=== PATIENT | female | born 1945 | race Caucasian/White ===

== ENCOUNTER 2017-04-05 12:27 | Day surgery (SDC) | payer BC ==
--- NOTE | 2017-04-05 07:26 | History and Physical - [facility] ---
CHIEF COMPLAINT/HISTORY OF CHIEF COMPLAINT: This patient presents with a history of an intractable lumbar radiculitis. Due to the failure of all therapy a spinal cord stimulator trial was conducted on 02/27/17 with 75-90% pain control. Due to the failure of all therapies and the success of the stimulator trial, the patient presents today for implantation of a permanent system. PAST MEDICAL HISTORY: Hypertension. PAST SURGICAL HISTORY: MEDICATIONS ON ADMISSION: List to be provided. ALLERGIES: None identified. FAMILY/PSYCHOSOCIAL HISTORY: Social history - Noncontributory. Family history - Diabetes, thyroid disease, hypertension, and cerebrovascular disease. SYSTEMS REVIEW: The patient seems appropriate in no acute distress. The remainder of the systems review is positive for glasses, headaches, blood pressure problems, and degenerative arthritis. PHYSICAL EXAMINATION: Height is 5'8", weight is 200 pounds. Vital signs - Not available. HEENT: Within normal limits. LUNGS: Clear. HEART: Regular rate and rhythm. ABDOMEN: Nontender. MUSCULOSKELETAL: Examination of the musculoskeletal system shows diffuse tenderness throughout the lumbar spine. Range of motion does cause pain throughout the low back and hip with both flexion and extension and a lower extremity component moving into both legs. Ambulation - No assistive device utilized. NEUROLOGIC: Cranial nerves are intact. IMPRESSION: LUMBAR RADICULITIS, ICD10 CODE M54.16 AND M54.17. PLAN: The patient is here for implantation of a permanent system spinal cord stimulator and internal generator based upon the successful trial and the failure of all other therapies. The potential risks, side effects, and complications have all been carefully reviewed including dural puncture, nerve root injury, and spinal cord injury. The patient understands and has consented. We will consider this outpatient although an overnight stay will be evaluated. RUCHI WHITMAN D.O. Date & Time JOB NUMBER: [id number] MTDD
[~2017-04-05 12:27] MED LIST: ACETAMINOPHEN 1,000 MG/100 ML BTL IV ONE; CEFAZOLIN 2 Gram 2 GM/50 ML BAG IVPB ONE; FAMOTIDINE 20MG TABLET PO ONE; MECLIZINE 25 MG TABLET PO ONE; METOCLOPRAMIDE 10 MG TABLET PO ONE
[2017-04-05] MEDS ORDERED: BUPIVACAINE 0.5% W/EPI MPF 30 ML VIAL IVP ONE (14:00)
[2017-04-05] MEDS ORDERED: CEFAZOLIN 1G VIAL IM ONE (14:00)
[2017-04-05] MEDS ORDERED: DEXAMETHASONE 4 MG/ML 1ML VIAL IVP ONE (14:00)
[2017-04-05] MEDS ORDERED: LIDOCAINE 1% W/EPI 1:200,000 MPF 30ML SQ ONE (14:00)
[2017-04-05] MEDS ORDERED: HYDROMORPHONE HCL 2 MG/ML VIAL IV ONE (14:00)
[2017-04-05] MEDS ORDERED: LIDOCAINE 2% MDV (20MG/ML) 20ML VIAL IV ONE (16:06)
[2017-04-05] MEDS ORDERED: MIDAZOLAM HCL 2MG/2ML VIAL IV ONE (16:06)
[2017-04-05] MEDS ORDERED: PROPOFOL 10 MG/ML VIAL IV ONE (16:06)
[2017-04-05] MEDS ORDERED: FLUMAZENIL 1MG/10ML VIAL IV ONE (16:06)
[2017-04-05] MEDS ORDERED: FENTANYL PF 100MCG/2ML VIAL IV ONE (16:06)
[2017-04-05] MEDS ORDERED: MORPHINE SULFATE 5 MG/ML PFS IVP ONE (16:06)
--- NOTE | 2017-04-11 12:06 | RADIOLOGY REPORT ---
EXAM: AP THORACIC SPINE HISTORY: STIMULATOR PLACEMENT. TECHNIQUE: AP view of the thoracic spine was obtained. Comparison: None. FINDINGS: Two leads overlie the thoracic spine extending cephalad with the tips at the upper T6 level. Mild to moderate dextroconvex scoliosis of the thoracic spine with at least mild degenerative disk disease. IMPRESSION: STIMULATOR LEADS OVERLIE THE THORACIC SPINE EXTENDING CEPHALAD TO THE UPPER T6 LEVEL. JOB NUMBER: [id number] MTDD
--- NOTE | 2017-04-11 15:49 | Operative Note ---
DATE OF SURGERY: 04/05/2017 PREOPERATIVE DIAGNOSIS: Intractable lumbar radiculitis, ICD10 code M54.16, M54.17. OPERATION: 1. Fluoroscopic-guided right translaminar epidural access T11-12, placement of spinal cord stimulator lead 1, a [employer] 16, 6 electrodes positioned left T6. 2. Complex programming of lead 1 for 20 minutes. 3. Fluoroscopic-guided epidural access right T12-L1 using a translaminar approach, placement of spinal cord stimulator lead 2, a [employer] 16, 6 electrodes positioned right T6. 4. Complex programming of lead 2 for 20 minutes. 5. Incision, subdissection, and anchoring leads 1 and 2 to supraspinous fascia using a [employer] locking anchor. 6. Incision, subdissection, and creation of subcutaneous pouch at right posterior gluteal margin for placement of generator identified as a [employer] programmable rechargeable. 7 .Tunneling between pouches, placement of external portion of lead 1 and lead 2 into generator pouch, each lead interfaced with bifurcate extension, each bifurcate extension interfaced to generator. 8. Placement of generator into pouch, secured to posterior fascia using nonabsorbable suture, placement of leads in the pouch, closure of both incisions with Vicryl for fascia, running subcuticular Vicryl for skin, Dermabond closure. 9. Complex recovery room programming internal generator home use 2 stimulators for 20 minutes. Surgeon: Ciro Rodriguez DO Anesthesia: Local with sedation. Anesthesia Provider: Vern Wu Indication: This patient presents with a history of intractable lumbar radiculitis. Due to the failure of all therapies, a spinal cord stimulator trial was conducted in the office with 75% to 90% pain control. Due to the failure of all therapies and success of the trial, she opted to have a permanent implant. PROCEDURE: Intravenous line, vital sign monitoring, IV sedation by Anesthesia. Patient positioned prone. Sterile prep, sterile technique. The epidural interface right of the midline at T11-12 and 12-1 infiltrated with local and then 2 separate curved access needles with loss of resistance. At 11-12, spinal cord stimulator lead 1, a [employer] 16, 6 electrodes positioned left T6. With the epidural access right of the midline at 12-1, spinal cord stimulator lead 2, a [employer] 16, 6 electrodes positioned right of the midline at T6. Complex programming of lead 1 over 20 minutes followed by complex programming of lead 2 over 20 minutes resulting in pattern of stimulation across the back into the legs. Patient indicating we were in all the appropriate areas. She was given the option to implant the system, continue to program, or remove the system. She opted to implant. The question was repeated with the same response. At that point, the skin above and below both needles was infiltrated. An incision made and subcutaneous dissection was conducted at supraspinous fascia. Each lead was then anchored to the supraspinous fascia using a [employer] locking anchor. Right of the midline and below the belt line at the right posterior superior gluteal margin, a site picked by the patient for the generator. Skin infiltrated, incision made, and subcutaneous dissection was used to form a pouch of suitable size and depth. A tunneling tool was then used to carry both leads into the posterior gluteal pouch and then each lead was interfaced with bifurcate extension. Each bifurcate extension interfaced with the generator. Antibiotic irrigation and Bovie for hemostasis. The generator was then secured to the posterior fascia of the pouch using a nonabsorbable suture. The leads were placed in their own pouch, and then both incisions were closed with Vicryl for fascia and running subcuticular Vicryl for skin. A Dermabond closure was then used to approximate the edges of both wounds. She was transferred to the recovery room stable showing no side effects of the procedure or the sedation. When fully awake and alert, she was transported to the floor for observation. If she is fully awake and meets the criteria on the nursing floor, she can be discharged to home. DISCHARGE INSTRUCTIONS: 1. Sites to remain clean and dry although the Dermabond will allow showering. She should not shower until tomorrow or the next 24 hours. 2. Standard medications resumed including Levaquin the antibiotic 500 mg once a day for 14 days. 3. The office will contact the patient at home to evaluate and set up an evaluation for the incisional sites in 5-7 days. Until then, her activity should remain low. Limit bend, lift, push, pull. All other instructions provided, numbers to contact if problems given. At that point she was discharged. CC: Dr. Sarthak SALOMON
== END 2017-04-05 18:30 | disposition home or self-care (01) ==
LOC: SUR 12:27 → MEDSURG 16:38 → SUR 18:30
PROVIDERS: ATTEND Pain Medicine Interventional Pain Medicine
DX: M54.16 Radiculopathy, lumbar region (principal); M54.17 Radiculopathy, lumbosacral region
CPT/HCPCS: 63685; 63650 ×2; 00300; 95972; 85002; 72020; J3010; J1170; J0690; J2270

== ENCOUNTER 2018-07-04 11:55 | Day surgery (SDC) | payer BC ==
--- NOTE | 2018-07-04 06:39 | History and Physical Report ---
DATE: 07/04/2018. CHIEF COMPLAINT AND HISTORY OF CHIEF COMPLAINT: This patient presents with a history of an intractable lumbar radiculopathy. She had a spinal cord stimulator implant placed on 04/05/2017. Although the system has been working well for her, there have been certain areas of her pain which we have been unable to capture through the current system. A new generator has just been released within the last few months from [employer] which greatly enhances the functionality of the system providing more settings and greater control. She is here for a battery change to improve the functionality of the system. PAST MEDICAL HISTORY: Hypertension. PAST SURGICAL HISTORY: Stimulator implant. MEDICATIONS ON ADMISSION: To be provided. ALLERGIES: None. SOCIAL HISTORY: Noncontributory. FAMILY HISTORY: Diabetes, thyroid disease, hypertension, cerebrovascular disease. REVIEW OF SYSTEMS: The patient is appropriate and in no acute distress. The remainder of the systems review shows glasses, headaches, blood pressure problems, degenerative arthritis. PHYSICAL EXAMINATION: General: Height and weight unavailable. Vital Signs: Not available. HEENT: Within normal limits. Lungs: Clear. Heart: Regular rate and rhythm. Abdomen: Nontender. Musculoskeletal: Examination of the musculoskeletal system shows the generator pouch at the right posterior gluteal margin. The incision is intact. the primary underlying pain pattern is low back with a bilateral lower extremity extension. Neurologic: Cranial nerves are intact. IMPRESSION: 1. LUMBAR RADICULOPATHY, ICD-10 CODE M54.16 AND M54.17. 2. SPINAL CORD STIMULATOR INTERNAL GENERATOR NONFUNCTIONAL. PLAN: The patient is here on an outpatient basis for replacement of the generator. The potential risks, side effects, and complications have all been carefully reviewed and discussed. JOB NUMBER: [id number] cc: Augustus Broderick
[2018-07-04] MEDS ORDERED: PROPOFOL 10 MG/ML VIAL IV ONE (11:56)
[2018-07-04] MEDS ORDERED: *PACU ONLY* KETAMINE HCL 10 MG/ML (20ML) VIAL IV ONE (11:56)
[2018-07-04] MEDS ORDERED: LIDOCAINE 1% W/EPI 1:200,000 MPF 30ML SQ ONE (11:56)
[2018-07-04] MEDS ORDERED: CEFAZOLIN 1G VIAL IM ONE (11:56)
[2018-07-04] MEDS ORDERED: BUPIVACAINE 0.5% W/EPI MPF 30 ML VIAL IVP ONE (11:56)
[2018-07-04] MEDS ORDERED: FENTANYL PF 100MCG/2ML VIAL IV ONE (11:56)
[2018-07-04] MEDS ORDERED: MIDAZOLAM HCL 2MG/2ML VIAL IV ONE (11:56)
--- NOTE | 2018-07-05 21:50 | Operative Note - [facility] ---
DATE OF SURGERY: 07/04/18. PREOPERATIVE DIAGNOSES: 1. INTRACTABLE LUMBAR RADICULOPATHY, ICD-10 CODE = M54.16 AND M54.17. 2. SPINAL CORD STIMULATOR INTERNAL GENERATOR. SURGERY: FLUOROSCOPIC-GUIDED REMOVAL AND REPLACEMENT OF INTERNAL PULSE GENERATOR WITH A [employer] WAVEWRITER. SURGEON: RUCHI WHITMAN D.O. ANESTHESIA: LOCAL SEDATION. ANESTHESIA PROVIDER: MILLICENT GARVEY CRNA. INDICATIONS: This patient presents with a history of intractable lumbar radiculopathy managed by spinal cord stimulation. She recently has had a certain amount of breakthrough pain, which has not been adequately covered by her stimulator. Multiple attempts at reprogramming failed to appreciably control these regions, which were upper back. She was given the option to change her generator to the new WaveWriter technology, which provides greater functionality, improved waveform generation, and more greater areas of coverage including moving higher into the lumbar and thoracic spine. She opted for a generator removal and replacement. SURGERY: Intravenous line, vital sign monitoring, IV sedation, prepped and draped sterile technique. Patient position prone. Sterile prep, sterile technique at the right posterior superior gluteal margin. Generator pouch identified, marked and infiltrated with local, incision made, and subcutaneous dissection was conducted to the pouch. The pouch was opened and generator exteriorized and from the internal leads. The new WaveWriter generator placed onto the field, interfaced with the indwelling leads. Antibiotic irrigation and Bovie for hemostasis. Nonabsorbable suture was placed to secure the generator into the pouch and then the generator pouch was closed using STRATAFIX suture, 2-0 for fascia and 3-0 running subcuticular for skin. Dermabond closure. She was transported to the Recovery Room stable, no side effects from the procedure or the sedation. When fully awake and alert, she was prepared for discharge. DISCHARGE INSTRUCTIONS: 1. The site is to remain clean and dry. No sitting in water but she may shower. 2. Standard medications resumed including the antibiotic, Levaquin 500 mg once a day for 14 days. 3. She will be seen in the office in 7 to 10 days. Until then, she is to keep her activity levels low. All other instructions provided, numbers to contact if problems given. She will be discharged. cc: Dr. Anushka Archibald JOB NUMBER: [id number] [facility]
== END 2018-07-04 14:50 | disposition home or self-care (01) ==
LOC: SUR 11:55
PROVIDERS: ATTEND Pain Medicine Interventional Pain Medicine
DX: M54.16 Radiculopathy, lumbar region (principal); M54.17 Radiculopathy, lumbosacral region; R60.9 Edema, unspecified; I10 Essential (primary) hypertension; E78.00 Pure hypercholesterolemia, unspecified; G25.81 Restless legs syndrome; Z79.01 Long term (current) use of anticoagulants; J44.9 Chronic obstructive pulmonary disease, unspecified; I71.4 Abdominal aortic aneurysm, without rupture; K44.9 Diaphragmatic hernia without obstruction or gangrene; Z95.5 Presence of coronary angioplasty implant and graft
CPT/HCPCS: 63685; 00300; 95972; J3010; J0690; C1820

== ENCOUNTER 2019-12-11 12:01 | Day surgery (SDC) | payer BC ==
--- NOTE | 2019-12-11 07:47 | History and Physical - Ferro ---
CHIEF COMPLAINT/HISTORY OF CHIEF COMPLAINT: This patient presents with a history of intractable lumbar radiculopathy. Diagnostic imaging of the lumbar spine by way of CT and standard x-rays shows five non-rib bearing levels, multiple level lumbar spinal stenosis including L3-L4, L4-L5 and L5-S1. The primary levels appear to be L4-L5 and L5-S1 with nerve root involvement including L4 and L5. Symptom pattern is aggravated and intensified with ambulation and subsides with sitting and forward bending. Treatment history has been extensive. Physical therapy and biomechanical treatments have failed. Treatment history over 10-14 years has been unsuccessful. Surgical evaluation - No surgery. Due to the failure of therapy and the symptom pattern consistent with neurogenic intermittent claudication and multiple level spinal stenosis, she is here for interspinal spacer placement. PAST MEDICAL HISTORY: Hypertension. PAST SURGICAL HISTORY: Spinal cord stimulator. MEDICATIONS ON ADMISSION: List to be provided. ALLERGIES: None. FAMILY/PSYCHOSOCIAL HISTORY: Social history - Noncontributory. Family history - Diabetes, thyroid disease, hypertension, and cerebrovascular disease. SYSTEMS REVIEW: The patient is appropriate in no acute distress. The remainder of the systems review is positive for glasses, headaches, blood pressure, and degenerative arthritis. PHYSICAL EXAMINATION: No height and weight. No vital signs. HEENT: Within normal limits. LUNGS: Clear. HEART: Rapid and regular. ABDOMEN: Nontender. MUSCULOSKELETAL: Examination of the musculoskeletal system shows the primary pain pattern to extend towards the hips outer front and back surface of the legs. Ambulation produces pain. Sitting and forward bending reduces pain. Motor and sensory field evaluation of the lower extremities show mild sensory and mild motor abnormalities. NEUROLOGIC: Cranial nerves are intact. IMPRESSION: MULTIPLE LEVEL LUMBAR SPINAL STENOSIS WITH NEUROGENIC INTERMITTENT CLAUDICATION, ICD-10 CODE M48.062. PLAN: The patient is here for interspinal spacer placement at L4-L5 and L5-S1. The L5-S1 level will be approached because the S1 level has an appropriate spinous process. There are multiple levels of spinal stenosis the primary contributors to her pain pattern which would appear by anatomy to be the L4 and the L5 level. Interspinal spacer placement has been discussed and reviewed in detail. Six weeks of restrictions limiting bend, lift, push, and pull. The risks, side effects and complications have all been carefully reviewed and discussed. She was put in contact with a clinical specialist who also reviewed the same. The procedure will be considered outpatient although an overnight stay will be evaluated. JOB NUMBER: [id number] MTDD
[~2019-12-11 12:01] MED LIST changes: -ACETAMINOPHEN 1,000 MG/100 ML BTL IV ONE; +ACETAMINOPHEN 1,000 MG/100 ML BTL IVPB ONE
[2019-12-11] MEDS ORDERED: LIDOCAINE 2% MDV (20MG/ML) 20ML VIAL IV ONE (12:02)
[2019-12-11] MEDS ORDERED: FENTANYL PF 100MCG/2ML VIAL IV ONE (12:02)
[2019-12-11] MEDS ORDERED: *PACU ONLY* KETAMINE HCL 10 MG/ML (20ML) VIAL IV ONE (12:02)
[2019-12-11] MEDS ORDERED: PROPOFOL 10 MG/ML VIAL IV ONE (12:02)
[2019-12-11] MEDS ORDERED: MIDAZOLAM HCL 2MG/2ML VIAL IV ONE (12:02)
[2019-12-11] MEDS ORDERED: RINGERS SOLUTION,LACTATED 1,000 ML IV ONE (12:52)
[2019-12-11] MEDS ORDERED: BUPIVACAINE 0.5% W/EPI MPF 30 ML VIAL SQ ONE ×2 (14:40)
[2019-12-11] MEDS ORDERED: LIDOCAINE 1% W/EPI 1:200,000 MPF 30ML SQ ONE ×2 (14:41)
[2019-12-11] MEDS ORDERED: CEFAZOLIN 1G VIAL IR ONE (14:42)
[2019-12-11] MEDS ORDERED: OXYCODONE/APAP 10MG-325MG TABLET PO ONE (15:26)
--- NOTE | 2019-12-12 19:51 | RADIOLOGY REPORT ---
EXAMINATION: Lumbosacral Spine Single View EXAM DATE: 12/12/2019 7:55 AM TECHNIQUE: Lateral view INDICATION: S/P VERTFLEX IMPLANT COMPARISON: None ENCOUNTER: Initial FINDINGS: Normal vertebral body heights. Diffuse interspace narrowing with levoscoliosis. Stimulator projects [place] the left gluteal regions with epidural wires lower thoracic spine. VERTFLEX IMPLANT L4-L5 L5-S1. Aortic calcification. IMPRESSION: No acute abnormality Dictated by: Wilton Travis MD on 12/12/2019 7:49 PM. .
--- NOTE | 2019-12-16 09:07 | Operative Note - Ferro ---
DATE OF SURGERY: 12/11/2019 PREOPERATIVE DIAGNOSIS: MULTIPLE LEVEL LUMBAR SPINAL STENOSIS WITH NEUROGENIC INTERMITTENT CLAUDICATION, ICD-10 CODE M48.062. OPERATION: 1. FLUOROSCOPICALLY GUIDED PLACEMENT OF INTERSPINAL SPACER AT L5-S1 WITH RADIOLOGIC SUPERVISION AND INTERPRETATION. 2. FLUOROSCOPICALLY GUIDED PLACEMENT OF INTERSPINAL SPACER AT L4-L5 USING RADIOLOGIC SUPERVISION AND INTERPRETATION. SURGEON: Ciro Rodriguez D.O. ANESTHESIA: Local sedation. ANESTHESIA PROVIDER: ERWIN Aquino CRNA INDICATION: This patient presents with multiple level lumbar spinal stenosis and secondary neurogenic intermittent claudication or pain into the extremities. Diagnostic studies do show the primary disks L2-L3, L3-L4, L4-L5 and L5-S1 disk levels showing spinal stenosis at the levels at L4-L5 and L5-S1, all involving the nerve roots to the hip outside as well as butt cheek and back of the leg. Her pain pattern is front and back of the leg. It is aggravated with activity and subsides with sitting or forward bending. Due to the extensive multiple year history achievements and failure, she is here for interspinal spacer placement to distract and indirectly decompress the spinal space at L4-L5 and L5-S1. PROCEDURE: Intravenous line, vital sign monitoring, IV sedation, prepped and draped, sterile technique. The patient was positioned prone. Sterile prep, sterile technique. Under imaging the interspinal space at L5-S1 was marked, infiltrated, a dilator was placed between the spinous processes of L5 and S1 using AP and lateral imaging and staying posterior to the lamina. A second dilator to distract the spinous processes was then inserted over the first, placed into position the spinous process of L5 from S1. A debriding device was then used to debride the interspinous ligament between the spinous processes and then a measuring or gauging device was used to measure the distance between the spinous process, this measured at 12 mm. A 12 mm interspinal spacer was then inserted using AP and lateral imaging and staying posterior to the lamina. The device was then affixed into place by extending the extensions upper and lower secured between the spinous process of L5 and S1. This was confirmed on AP and lateral imaging. It was then gently downed to a position up against the lamina. The device was removed and imaging confirmed placement posterior to the lamina with the upper extensions under the spinous process of L5 and the lower extensions above the spinous process of S1. Moving now to the L4-L5 interspace, the skin was infiltrated, AP and lateral imaging was used after 22-gauge needle positioned to confirm midline. A midline dilator was then placed between the spinous processes posterior to the lamina and confirmed AP and lateral imaging. A second dilator was then placed over the first to distract the spinous processes between L4 and L5 staying posterior to the lamina. The inter-dilator was removed and debridement was then of the interspinous ligament performed. A measuring device was used to measure the distance between the spinous process of L4 and L5, also noted at 12 mm. A 12 mm interspinal spacer was then inserted under imaging, AP and lateral staying posterior to the lamina, the interspinal spacer was then expanded securing the upper extensions and the lower extensions at the spinous processes. The upper extensions at the lower margin of the spinous process of L4 and the lower extensions at the upper aspect of the spinous process of L5. The device was then tapped into position up against the lamina. AP and lateral imaging was used to confirm appropriate placement of the two spacers to the posterior lamina. Antibiotic irrigation was then performed, the incision was then closed at each of the two levels with a Vicryl for the fascia and a nylon intermittent for the skin. An OP-Site dressing was placed after the antibiotic irrigation. She was transported to the Recovery Room stable. No side effects from the procedure or sedation. She was monitored until stable and then prepared for discharge. DISCHARGE INSTRUCTIONS: 1. The sites are to remain clean and dry. She can shower, but she needs to keep the sites dry. 2. Standard medications are resumed including the antibiotic Levaquin 500 mg once a day for fourteen days. A prescription has been provided to manage incisional pain. 3. The office is to contact the patient in the next 24 hours to set up a time in 7-10 days for us to evaluate the sites, until then she is to keep her activities low. She has six weeks of restrictions limiting bend, lift, push and pull. She will be evaluated at two week intervals for a total of six weeks. All other instructions are provided. The numbers to contact if problems given. She was then discharged. JOB NUMBER: [id number] [facility]
== END 2019-12-11 15:50 | disposition home or self-care (01) ==
LOC: SUR 12:01
PROVIDERS: ATTEND Pain Medicine Interventional Pain Medicine
DX: M48.062 Spinal stenosis, lumbar region with neurogenic claudication (principal); J44.9 Chronic obstructive pulmonary disease, unspecified; I27.20 Pulmonary hypertension, unspecified; N18.4 Chronic kidney disease, stage 4 (severe); I10 Essential (primary) hypertension; E78.00 Pure hypercholesterolemia, unspecified; R60.9 Edema, unspecified; Z79.01 Long term (current) use of anticoagulants; I73.9 Peripheral vascular disease, unspecified; Z95.5 Presence of coronary angioplasty implant and graft
CPT/HCPCS: 72020; C1821; J0690; J7120